=== PATIENT | female | born 1960 | race Caucasian/White ===

== ENCOUNTER 2025-04-17 07:44 | Outpatient (CLI) | payer OTHER ==
[2025-04-17 08:33] LABS: Estimated GFR - POC 57.0
[2025-04-17] MEDS ORDERED: Iopamidol 370 76% 100 ML VIAL ONE (11:49)
== END 2025-04-17 07:45 | disposition home or self-care (01) ==
LOC: CT 07:44
PROVIDERS: ATTEND Nurse Practitioner Family
DX: R31.0 Gross hematuria (principal); Z87.448 Personal history of other diseases of urinary system; E83.59 Other disorders of calcium metabolism; N29 Other disorders of kidney and ureter in diseases classified elsewhere; R91.8 Other nonspecific abnormal finding of lung field
CPT/HCPCS: 36415; 74178; 82565; Q9967